=== PATIENT | female | born 1975 | race Two or more races ===

== ENCOUNTER 2022-11-16 06:34 | Day surgery (SDC) | payer OTHER ==
[~2022-11-16] VITALS: Ht 157.5 cm; Wt 70.3 kg
[~2022-11-16 06:34] MED LIST: METFORMIN HCL500 M3 PO; SYNTHROID75 MCG PO
== END 2022-11-16 14:15 | disposition home or self-care (01) ==
LOC: CIR.AMB 06:34
PROVIDERS: ATTEND Orthopaedic Surgery
DX: M25.812 Other specified joint disorders, left shoulder (principal); M75.32 Calcific tendinitis of left shoulder; F17.210 Nicotine dependence, cigarettes, uncomplicated; Z20.822 Contact with and (suspected) exposure to COVID-19; Z91.018 Allergy to other foods; E03.9 Hypothyroidism, unspecified; R73.03 Prediabetes; Z79.84 Long term (current) use of oral hypoglycemic drugs; D64.9 Anemia, unspecified

== ENCOUNTER 2024-07-21 10:05 | Inpatient (IN) | payer OTHER ==
[~2024-07-21] VITALS: Ht 157.5 cm; Wt 61.2 kg
--- NOTE | 2024-07-21 10:45 | NUR ---
PACIENTE ALERTA Y ORIENTADA X 3. REFIERE DESDE EL MIERCOLOES MOLESTIA EN LOS OJOS, DOLOR CORPORAL Y FIEBRE.
[2024-07-21] MEDS ORDERED: OZEMPIC1 MG/0.71 SQ (10:46)
[2024-07-21] MEDS ORDERED: ACETAMINOPHEN 500 MG GEL..CAP PO ONE ×2 (12:30→12:37)
[2024-07-21] MEDS ORDERED: ONDANSETRON HCL 2 MG/ML VIAL IV ONE (12:30)
[2024-07-21] MEDS ORDERED: 0.9 % SODIUM CHLORIDE 500 ML IV ONE (12:30)
[2024-07-21] MEDS ORDERED: ONDANSETRON HCL 2 MG/ML VIAL ONE (12:37)
--- NOTE | 2024-07-21 13:17 | NUR ---
SE CANALIZA VENA Y SE TOMANMMUESTRAS DE LAB. SE ADMINISTRA MEDICAMENTO POR ORDEN MEDICA BAJO MEDIDAS ASEPTICAS.
[2024-07-21 13:54] LABS: HEMATOCRIT 37.6 % (36.0-45.00); MEAN CELL VOLUME 97.4 fL (80.00-100.00); MEAN CORPUSCULAR HEMOGLOBIN 33.7 pg (27.00-32.0); MEAN CORPUSCULAR HGB CONC 34.6 g/dl (32.0-36.0); RED BLOOD COUNT 3.86 M/uL (4.00-6.00); RED CELL DISTRIBUTION WIDTH 12.7 % (11.5-14.5)
[2024-07-21 13:56] LABS: PLATELET COUNT 79 K/uL (150-450)
[2024-07-21 13:59] LABS: CALCIUM 8.7 mg/dL (8.5-10.1); CREATININE SERUM 0.78 mg/dL (0.55-1.02); GFR 78.17; POTASSIUM 3.38 mEq/L (3.5-5.1)
[2024-07-21] MEDS ORDERED: ACETAMINOPHEN 500 MG GEL..CAP PO PRN (17:00)
[2024-07-21] MEDS ORDERED: 0.9 % SODIUM CHLORIDE 1,000 ML IV SCH (17:15)
[2024-07-21] MEDS ORDERED: INSULIN LISPRO 1,000 UNIT/10 ML UNITS SUBCUTANEO PRN (17:15)
[2024-07-21] MEDS ORDERED: DEXTROSE 50 % IN WATER 0.5 G/ML DISP.SYRIN IV PRN (17:15)
[2024-07-21] MEDS ORDERED: POTASSIUM CHLORIDE/NACL 0.9% 1,000 ML IV ONE (17:15)
[2024-07-21 17:53] LABS: ERYTHROCYTE SEDIMENTATION RATE 14 mm/hr
[2024-07-21] MEDS ORDERED: POTASSIUM CHLORIDE/NACL 0.9% 20 MEQ/1,000 ML PIGGYBAG IV ONE (18:02)
[2024-07-21 18:13] LABS: INR 1.05; PARTIAL THROMBOPLASTIN TIME 27.1 SECONDS (22.0-34.0); PROTHROMBIN TIME 11.4 SECONDS (9.0-11.5)
[2024-07-21 18:19] LABS: PLT IN CITRATE 63 K/uL (150-450)
[2024-07-21 18:59] LABS: URINE APPEARANCE Clear; URINE BILIRRUBIN Negative (NEGATIVE); URINE BLOOD Negative; URINE COLOR Yellow; URINE GLUCOSE Negative (NEGATIVE); URINE KETONE 15 (NEGATIVE); URINE LEUKOCYTE Trace; URINE NITRATE Negative; URINE PROTEIN Negative (NEGATIVE); URINE UROBILINOGEN 0.2 E.U./dl
[2024-07-21 19:00] LABS: URINE CAST 0.76 uL (0.0-1.40); URINE RBC 13.7 uL (0.0-20.8); URINE WBC 12.8 uL (0.0-23.2)
[2024-07-22 01:54] VITALS: BP 103/64
[2024-07-22] MEDS ORDERED: LEVOTHYROXINE SODIUM 75 MCG TABLET PO SCH (06:00)
[2024-07-22 08:02] LABS: HEMATOCRIT 33.5 % (36.0-45.00); HEMOGLOBIN 11.6 g/dL (12.0-15.00); MEAN CELL VOLUME 98.6 fL (80.00-100.00); MEAN CORPUSCULAR HGB CONC 34.5 g/dl (32.0-36.0); RED CELL DISTRIBUTION WIDTH 13.2 % (11.5-14.5)
[2024-07-22 08:34] LABS: ALBUMIN 2.9 gm/dL (3.4-5.0); BILIRUBIN TOTAL 0.27 mg/dL (0.3-1.2); CALCIUM 7.9 mg/dL (8.5-10.1); CREATININE SERUM 0.61 mg/dL (0.55-1.02); GFR 103.82; GLOBULINA 3.3 G/DL (2.4-3.5); POTASSIUM 3.97 mEq/L (3.5-5.1); TOTAL PROTEIN 6.2 gm/dL (6.4-8.2)
[2024-07-22 08:57] LABS: PLATELET COUNT 57 K/uL (150-450)
[2024-07-22 09:00] VITALS: BP 114/72; O2SAT 98
[2024-07-22] MEDS ORDERED: PANTOPRAZOLE SODIUM 40 MG/VIAL VIAL IV SCH (09:00)
[2024-07-22] MEDS ORDERED: VITAMIN B COMPLEX 1 EACH PO SCH (17:00)
[2024-07-22] MEDS ORDERED: Cyanocobalamin/Mecobalamin 1 TAB.SL SL SCH (17:00)
[2024-07-22] MEDS ORDERED: POLYETHYLENE GLYCOL 3350 17 GM BLIST.PACK PO SCH (17:00)
[2024-07-22 18:59] VITALS: BP 101/61
[2024-07-22 22:13] VITALS: BP 102/70; O2SAT 100
[2024-07-22] MEDS ORDERED: PANTOPRAZOLE SODIUM 40 MG/VIAL VIAL IV PUSH STA (22:59)
[2024-07-22] MEDS ORDERED: ONDANSETRON HCL 2 MG/ML VIAL IV PRN (23:00)
[2024-07-23 02:43] VITALS: BP 106/74; O2SAT 98
[2024-07-23 09:07] VITALS: BP 119/80
[2024-07-23 12:08] LABS: HEMATOCRIT 34.8 % (36.0-45.00); HEMOGLOBIN 11.9 g/dL (12.0-15.00); MEAN CELL VOLUME 99.7 fL (80.00-100.00); MEAN CORPUSCULAR HEMOGLOBIN 34.1 pg (27.00-32.0); MEAN CORPUSCULAR HGB CONC 34.2 g/dl (32.0-36.0); RED BLOOD COUNT 3.49 M/uL (4.00-6.00); RED CELL DISTRIBUTION WIDTH 12.7 % (11.5-14.5)
[2024-07-23 12:11] LABS: PLATELET COUNT 74 K/uL (150-450)
[2024-07-23 12:37] LABS: ALBUMIN 3.2 gm/dL (3.4-5.0); BILIRUBIN TOTAL 0.26 mg/dL (0.3-1.2); CALCIUM 8.6 mg/dL (8.5-10.1); CREATININE SERUM 0.69 mg/dL (0.55-1.02); GFR 90.05; GLOBULINA 3.7 G/DL (2.4-3.5); MAGNESIUM 2.3 mg/dL (1.8-2.4); POTASSIUM 4.04 mEq/L (3.5-5.1); TOTAL PROTEIN 6.9 gm/dL (6.4-8.2)
[2024-07-23 17:45] VITALS: BP 111/76
[2024-07-23 22:07] VITALS: BP 108/70
[2024-07-24 01:21] VITALS: BP 113/75; O2SAT 97
[2024-07-24 05:44] VITALS: BP 106/70; O2SAT 97
[2024-07-24] MEDS ORDERED: PROTONIX40 MG PO (06:42)
[2024-07-24] MEDS ORDERED: ONDANSETRON ODT4 MG PO (06:43)
[2024-07-24 07:37] LABS: HEMATOCRIT 34.3 % (36.0-45.00); HEMOGLOBIN 11.7 g/dL (12.0-15.00); MEAN CELL VOLUME 99.8 fL (80.00-100.00); MEAN CORPUSCULAR HEMOGLOBIN 33.9 pg (27.00-32.0); RED BLOOD COUNT 3.44 M/uL (4.00-6.00); RED CELL DISTRIBUTION WIDTH 12.9 % (11.5-14.5)
[2024-07-24 08:38] LABS: BILIRUBIN TOTAL 0.34 mg/dL (0.3-1.2); CALCIUM 8.3 mg/dL (8.5-10.1); CREATININE SERUM 0.66 mg/dL (0.55-1.02); GFR 94.8; GLOBULINA 3.6 G/DL (2.4-3.5); POTASSIUM 3.78 mEq/L (3.5-5.1); TOTAL PROTEIN 6.6 gm/dL (6.4-8.2)
[2024-07-24 08:56] LABS: PLATELET COUNT 95 K/uL (150-450)
[2024-07-24 09:07] VITALS: BP 147/71
[2024-07-25 11:08] LABS: EBV EARLY AG IGG < 9.0 U/mL (0.0-8.9)
[2024-07-26 09:07] LABS: vca igm ab < 36.0 U/mL (0.0-35.9)
== END 2024-07-24 10:06 | disposition home or self-care (01) | DRG 866 ==
LOC: ER 10:07 → MEDJ 17:44 → SEC-K 17:44 → MEDJ 21:16
PROVIDERS: General Practice; Internal Medicine Hematology & Oncology; Internal Medicine Infectious Disease; ADMIT Internal Medicine; ATTEND Internal Medicine
PROC: BW40ZZZ Ultrasonography of Abdomen (ICD-10-PCS; principal; 2024-07-21)
DX: A90 Dengue fever [classical dengue] (principal); D69.6 Thrombocytopenia, unspecified; K06.8 Other specified disorders of gingiva and edentulous alveolar ridge; B34.9 Viral infection, unspecified; E11.9 Type 2 diabetes mellitus without complications; Z79.4 Long term (current) use of insulin; E03.9 Hypothyroidism, unspecified